=== PATIENT | female | born 1950 | race Two or more races ===

== ENCOUNTER 2019-04-21 08:54 | Inpatient (IN) | payer MEDICARE, OTHER ==
[~2019-04-21] VITALS: Ht 154.9 cm; Wt 73.3 kg
[2019-04-21 09:48] LABS: Basophils # (auto) 0.1 uL; Basophils % (auto) 0.9 % (0.0-2.0); Eosinophils # (auto) 0.1 uL; Eosinophils % (auto) 1.2 % (0.0-7.0); Lymphocytes # (auto) 0.9 uL
[2019-04-21 09:50] LABS: Hematocrit 32.1 % (36.0-46.0); Hemoglobin 10.2 g/dL (12.2-16.2); Lymphocytes % (auto) 7.4 % (10.0-50.0); Mean Corpuscular Hemoglobin 25.2 pg (28.0-32.0); Mean Corpuscular Hgb Conc. 31.9 g/dL (32.0-36.0); Mean Corpuscular Volume 79.1 fL (80.0-100.0); Monocytes # (auto) 1.1 uL; Monocytes % (auto) 8.9 % (0.0-12.0); Neutrophils # (auto) 9.9 uL; Neutrophils % (auto) 81.6 % (37.0-80.0); Platelet Count (auto) 425 10^3/uL (140-450); Red Blood Cells 4.06 10^6/uL (4.0-5.20); Red Cell Distribution Width 17.8 % (11.8-14.3); White Blood Cell 12.1 10^3/uL (4.4-10.8)
[2019-04-21] MEDS ORDERED: SODIUM CHLORIDE 0.9% 1,000 ML IV ONE ×2 (09:53)
[2019-04-21] MEDS ORDERED: ONDANSETRON HCL 4 MG/2 ML VIAL IV ONE (10:00)
[2019-04-21 10:05] LABS: Alanine Aminotransferase 38 U/L (13-56); Albumin 2.1 g/dL (3.4-5.0); Anion Gap 15 (5-15); Aspartate Aminotransferase 104 U/L (15-37); BUN/Creatinine Ratio 16.5; Blood Urea Nitrogen 13 mg/dL (7-18); Calcium 9.2 mg/dL (8.5-10.1); Carbon Dioxide 24 mmol/L (21-32); Chloride 95 mmol/L (98-107); GFR African American 93 mL/min; GFR Non-African American 76 mL/min; Glucose 158 mg/dL (74-106); Potassium 3.7 mmol/L (3.5-5.1); Sodium 134 mmol/L (136-145)
[2019-04-21 10:10] LABS: Lactic Acid w/Reflex 5.4 mmol/L (0.4-2.0)
[2019-04-21 10:12] LABS: Alkaline Phosphatase 426 U/L (45-117); Bilirubin, Total 1.4 mg/dL (0.2-1.0); Total Protein 7.6 g/dL (6.4-8.2)
[2019-04-21 12:57] LABS: Urine Bacteria MOD /hpf (None Seen); Urine Blood Negative /uL (Negative); Urine Mucus FEW (None Seen); Urine Specific Gravity 1.022 (1.001-1.035); Urine WBC 13 /hpf (0 - 5)
[2019-04-21] MEDS ORDERED: LEVOFLOXACIN 500MG 100 ML IV ONE (13:30)
[2019-04-21] MEDS ORDERED: VANCOMYCIN 1GM/250ML 250 ML IV ONE ×2 (13:30→14:15)
[2019-04-21] MEDS ORDERED: NITROGLYCERIN 0.4 MG SL TAB SL PRN (15:45)
[2019-04-21] MEDS ORDERED: ACETAMINOPHEN 500 MG TAB PO PRN (15:45)
[2019-04-21] MEDS ORDERED: TEMAZEPAM 15 MG CAP PO PRN (15:45)
[2019-04-21] MEDS ORDERED: MORPHINE SULF INJ 2 MG/ML SYRINGE 1ML IV PRN (15:45)
[2019-04-21] MEDS ORDERED: traMADol HCL 50 MG TAB PO PRN (15:45)
[2019-04-21] MEDS ORDERED: LACTULOSE 20Gm/30ML SOLN PO PRN (15:45)
[2019-04-21] MEDS ORDERED: DEXTROSE (50%) 50ML SYRG IV PRN (15:45)
[2019-04-21] MEDS ORDERED: ERTAPENEM SOD INJ 1 GM in SODIUM CHL 0.9% 50 ML IV ONE (15:45)
[2019-04-21] MEDS: SODIUM CHLORIDE 0.9% 1,000 ML IV SCH ×2 (16:40→21:59)
[2019-04-21] MEDS ORDERED: ENOXAPARIN SOD 60 MG/0.6 ML SYRINGE SC ONE (17:00)
[2019-04-21] MEDS: ACCU-CHEK COMFORT CURVE STRIP VI SCH ×2 (17:31→21:37)
[2019-04-21] MEDS: InsuLIN REG 1unit/0.01ml Soln (100units/ml) SC SCH ×2 (17:38→21:36)
--- NOTE | 2019-04-21 18:05 | NUR ---
Telemetry admit from ER DOYLE HIGHTOWER admitted to Telemetry unit after SBAR received. Patient oriented to Terrie Becker, primary RN, unit, room, bed, and unit policies regarding patient care and visiting hours. Patient now on continuous telemetry monitoring, tele box # 32 and telemetry reading on arrival to unit is SINUS TACH 101. Patient placed on bedside oxygen, weighed by bedscale and encouraged to call if they need something. All questions and concerns addressed, patient verbalized understanding.
[2019-04-21 18:15] VITALS: BP 119/55
[2019-04-21] MEDS ORDERED: predniSONE 20 MG TAB PO ONE (19:00)
--- NOTE | 2019-04-21 19:30 | NUR ---
Opening Shift Note Assumed care of patient, patient was asleep but arousable with to name. No S/S of distress/SOB or pain. Patient stated that she could not have male nurse. Will notify charge nurse for change in assignment.
--- NOTE | 2019-04-21 20:30 | NUR ---
CARE ENDORSED Care has been endorsed to Kelli HAYES.
--- NOTE | 2019-04-21 20:35 | NUR ---
Received patient from Shane She is resting in bed, no S/S of distress, SOB, or pain. She is A/O x4. Updated on plan of care, all questions and concerns answered. Call light is within reach, side rails up x2, bed is in lowest position, bedside commode at bedside. Will round and monitor patient hourly and as needed.
[2019-04-21] MEDS ORDERED: ONDA-143 PO (20:36)
[2019-04-21] MEDS ORDERED: DULO20CA36 PO (20:45)
[2019-04-21] MEDS ORDERED: TRAM50TA2 PO (20:45)
[2019-04-21] MEDS ORDERED: METF500S PO (20:45)
[2019-04-21] MEDS: SODIUM FERR GLUC 62.5MG/5ML 125 MG in SODIUM CHL 0.9% 100 ML IV SCH (21:27)
[2019-04-21 21:45] VITALS: BP 112/70
[2019-04-22] MEDS ORDERED: predniSONE 20 MG TAB PO ONE ×2 (01:00→07:00)
--- NOTE | 2019-04-22 04:36 | NUR ---
New orders received from MD Mack, patient is to go for a CT of the chest with contrast at 0800. Patient is aware. Will input orders and continue to monitor patient.
[2019-04-22 05:05] VITALS: BP 120/71
[2019-04-22 05:56] LABS: Basophils # (auto) 0 uL; Eosinophils # (auto) 0 uL; Hemoglobin 8.7 g/dL (12.2-16.2); Lymphocytes # (auto) 0.6 uL
[2019-04-22 05:58] LABS: Basophils % (auto) 0.1 % (0.0-2.0); Hematocrit 26.9 % (36.0-46.0); Lymphocytes % (auto) 6.4 % (10.0-50.0); Mean Corpuscular Hemoglobin 25.9 pg (28.0-32.0); Mean Corpuscular Hgb Conc. 32.4 g/dL (32.0-36.0); Mean Corpuscular Volume 79.9 fL (80.0-100.0); Monocytes # (auto) 0.1 uL; Monocytes % (auto) 1.6 % (0.0-12.0); Neutrophils # (auto) 8.2 uL; Neutrophils % (auto) 91.9 % (37.0-80.0); Platelet Count (auto) 295 10^3/uL (140-450); Red Blood Cells 3.37 10^6/uL (4.0-5.20); Red Cell Distribution Width 18.1 % (11.8-14.3); White Blood Cell 8.9 10^3/uL (4.4-10.8)
[2019-04-22 06:16] LABS: Albumin 1.7 g/dL (3.4-5.0); BUN/Creatinine Ratio 19.4; Calcium 8.3 mg/dL (8.5-10.1); Potassium 3.8 mmol/L (3.5-5.1)
[2019-04-22 06:19] LABS: Bilirubin, Total 1.1 mg/dL (0.2-1.0); Total Protein 6.3 g/dL (6.4-8.2)
[2019-04-22] MEDS: SODIUM CHLORIDE 0.9% 1,000 ML IV SCH ×3 (06:28→21:06)
[2019-04-22] MEDS: InsuLIN REG 1unit/0.01ml Soln (100units/ml) SC SCH ×4 (06:34→21:41)
[2019-04-22] MEDS: ACCU-CHEK COMFORT CURVE STRIP VI SCH ×4 (06:34→21:41)
--- NOTE | 2019-04-22 06:59 | NUR ---
Family called, password given, and updated on patient's status.
[2019-04-22] MEDS ORDERED: diphenhdrAMINE HCL 25 MG CAP PO ONE (07:00)
[2019-04-22] MEDS ORDERED: IOHEXOL 350 MG/ML 100ML IJ ONE (07:07)
--- NOTE | 2019-04-22 07:45 | NUR ---
IV removed by patient IV DC'd by patient after pulling it out. Catheter was fully intact. Cleaned site, pressure dressing applied. Patient tolerated well.
--- NOTE | 2019-04-22 07:50 | NUR ---
IV insertion to RAC IV access obtained, via clean sterile technique by inserting 20 gauge catheter at the RAC after 1 attempt(s). IV secured properly. No trauma to site. Patient tolerated well.
--- NOTE | 2019-04-22 08:10 | NUR ---
Patient was taken downstairs for the CT of the chest.
--- NOTE | 2019-04-22 10:30 | NUR ---
Dr. Leonard at bedside, new orders received to collect urine bacterial culture.
[2019-04-22] MEDS: PANTOPRAZOLE 40 MG TAB PO SCH (11:08)
[2019-04-22] MEDS: ENOXAPARIN SOD 40 MG/0.4 ML SYRINGE SC SCH (11:08)
[2019-04-22] MEDS: ERTAPENEM SOD INJ 1 GM in SODIUM CHL 0.9% 50 ML IV SCH (11:08)
[2019-04-22] MEDS: SODIUM FERR GLUC 62.5MG/5ML 125 MG in SODIUM CHL 0.9% 100 ML IV SCH (12:14)
--- NOTE | 2019-04-22 14:37 | NUR ---
Endorsed care to Glory HAYES.
--- NOTE | 2019-04-22 14:50 | NUR ---
RECEIVED PATIENT FROM DAY SHIFT RN. PATIENT RESTING IN BED. FAMILY AT BEDSIDE. NO S/S OF DISTRESS NOTED. DENIED PAIN FOR NOW. POC INSTRUCTED AND ENCOURAGED PATIENT TO CALL FOR RAZOR GRINDER IF NEEDED. BED IN LOWEST POSITION WITH SIDE RAILS UP X 2. CALL BRAND WITHIN REACH. ALARM ON. CONTINUE TO MONITOR FOR CHANGES Q1H AND PRN.
[2019-04-22 17:00] VITALS: BP 122/74
--- NOTE | 2019-04-22 17:35 | NUR ---
ACCU-CHECK, BS 233. INSULIN GIVEN ORDERED. CONTINUE TO MONITOR.
--- NOTE | 2019-04-22 21:42 | NUR ---
ASSISTED PATIENT TO BEDSIDE COMMODE. PATIENT TOLERATED WELL. NO S/S OF DISTRESS NOTED. ACCU-CHECK, BS 239. INSULIN GIVEN ORDERED. CONTINUE TO MONITOR.
[2019-04-22 21:49] VITALS: BP 119/72
--- NOTE | 2019-04-23 01:30 | NUR ---
PATIENT SLEEPING. NO S/S OF DISTRESS NOTED. CONTINUE TO MONITOR.
--- NOTE | 2019-04-23 04:08 | NUR ---
ASSISTED PATIENT TO BEDSIDE COMMODE. PATIENT TOLERATED WELL. CONTINUE TO MONITOR.
[2019-04-23 05:00] VITALS: BP 110/60
[2019-04-23] MEDS: SODIUM CHLORIDE 0.9% 1,000 ML IV SCH ×4 (06:20→23:22)
[2019-04-23] MEDS: InsuLIN REG 1unit/0.01ml Soln (100units/ml) SC SCH ×4 (06:20→22:00)
[2019-04-23] MEDS: ACCU-CHEK COMFORT CURVE STRIP VI SCH ×4 (06:21→22:05)
--- NOTE | 2019-04-23 06:21 | NUR ---
ACCU-CHECK, BS 100. NO COVERAGE. CONTINUE TO MONITOR.
--- NOTE | 2019-04-23 07:30 | NUR ---
Morning note patient resting in bed with even and unlabored respirations, no distress noted. Instructed patient on POC, fall precautions and to call for assistance. Patient verbalized understanding. Fall precautions in place with bed in lowest locked position with call light within reach. BSC at bedside. Will continue to monitor q1hr & PRN.
[2019-04-23 08:00] VITALS: BP 103/58
[2019-04-23] MEDS: ERTAPENEM SOD INJ 1 GM in SODIUM CHL 0.9% 50 ML IV SCH (10:37)
[2019-04-23] MEDS: ENOXAPARIN SOD 40 MG/0.4 ML SYRINGE SC SCH (10:38)
[2019-04-23] MEDS: PANTOPRAZOLE 40 MG TAB PO SCH (10:38)
--- NOTE | 2019-04-23 11:01 | NUR ---
was at bedside - Dr. Nina Leonard This RN was at bedside. POC discussed with the patient and patient's son at bedside.
[2019-04-23 12:00] VITALS: BP 109/83
--- NOTE | 2019-04-23 12:30 | NUR ---
Medication not available - called pharmacy Scheduled IV medication not available. Notified pharmacy. Medication to be delivered to unit.
[2019-04-23] MEDS: SODIUM FERR GLUC 62.5MG/5ML 125 MG in SODIUM CHL 0.9% 100 ML IV SCH (12:39)
[2019-04-23] MEDS: PROMETHAZINE HCL 25 MG/ML 1ML IV PRN (13:45)
--- NOTE | 2019-04-23 13:52 | NUR ---
Patient resting in bed with even and unlabored respirations, no distress noted. Call light within reach. Visitors at bedside.
--- NOTE | 2019-04-23 16:35 | NUR ---
IV removed/IV started IV removed from the RAC due to leaking. IV removed with clean technique, catheter intact. Dressing applied. Patient tolerated well, no trauma to site. 22G IV started to the RWR with clean technique by ABIGAIL Benavides. IV secured. IV education provided to patient. patient verbalized understanding. Bed in lowest locked position with call light within reach. Visitor at bedside.
[2019-04-23 17:02] VITALS: BP 130/73
--- NOTE | 2019-04-23 18:38 | NUR ---
Closing note patient resting in bed with even and unlabored respirations, no distress noted. Fall precautions in place with bed in lowest locked position with call light within reach.
--- NOTE | 2019-04-23 19:12 | NUR ---
Care endorsed to ABIGAIL Holder.
--- NOTE | 2019-04-23 19:20 | NUR ---
RECEIVED PATIENT FROM DAY SHIFT RN. PATIENT RESTING IN BED. NO S/S OF DISTRESS NOTED. DENIED PAIN AND NAUSEA FOR NOW. POC INSTRUCTED AND ENCOURAGED PATIENT TO CALL FOR MANUFACTURERS AGENT IF NEEDED. BED IN LOWEST POSITION WITH SIDE RAILS UP X 2. CALL BRAND WITHIN REACH. ALARM ON. CONTINUE TO MONITOR FOR CHANGES Q1H AND PRN.
[2019-04-23 21:47] VITALS: BP 105/65
--- NOTE | 2019-04-23 22:05 | NUR ---
ACCU-CHECK, BS 112. NO COVERAGE. CONTINUE TO MONITOR.
--- NOTE | 2019-04-23 22:30 | NUR ---
ASSISTED PATIENT TO BEDSIDE COMMODE. PATIENT TOLERATED WELL. CONTINUE TO MONITOR.
--- NOTE | 2019-04-23 23:11 | NUR ---
PATIENT'S FAMILY CALLED. PASSWORD CONFIRMED. UPDATED ON PATIENT'S CONDITION. ALL QUESTIONED ADDRESSED. CONTINUE TO MONITOR.
--- NOTE | 2019-04-24 03:07 | NUR ---
PATIENT SLEEPING. NO S/S OF DISTRESS NOTED. CONTINUE TO MONITOR.
[2019-04-24 04:46] VITALS: BP 118/58
[2019-04-24] MEDS: ACCU-CHEK COMFORT CURVE STRIP VI SCH ×4 (06:26→21:34)
[2019-04-24] MEDS: InsuLIN REG 1unit/0.01ml Soln (100units/ml) SC SCH ×4 (06:27→21:34)
--- NOTE | 2019-04-24 06:27 | NUR ---
ASSISTED PATIENT TO BEDSIDE COMMODE. PATIENT TOLERATED WELL. ACCU-CHECK, BS 150. INSULIN GIVEN ORDERED. CONTINUE TO MONITOR.
--- NOTE | 2019-04-24 07:10 | NUR ---
OPENING SHIFT NOTE Assumed care of patient, awake and alert. No S/S of distress/SOB or pain. Instructed on POC and to call for assist PRN, will continue to monitor for changes Q1hr and PRN.
[2019-04-24 08:00] VITALS: BP 113/60
--- NOTE | 2019-04-24 09:37 | NUR ---
MICROBIOLOGY NOTIFICATION PATIENT POSITIVE FOR E.COLI/ESBL IN URINE. NANDA NOTIFIED. WILL ISOLATE PATIENT AND PLACE ON CONTACT PRECAUTIONS.
[2019-04-24] MEDS: ERTAPENEM SOD INJ 1 GM in SODIUM CHL 0.9% 50 ML IV SCH (10:45)
[2019-04-24] MEDS: PANTOPRAZOLE 40 MG TAB PO SCH (10:45)
[2019-04-24] MEDS: ENOXAPARIN SOD 40 MG/0.4 ML SYRINGE SC SCH (10:46)
[2019-04-24 12:00] VITALS: BP 124/64
[2019-04-24] MEDS: SODIUM FERR GLUC 62.5MG/5ML 125 MG in SODIUM CHL 0.9% 100 ML IV SCH (13:20)
[2019-04-24] MEDS: SODIUM CHLORIDE 0.9% 1,000 ML IV SCH ×3 (13:20→20:10)
--- NOTE | 2019-04-24 14:44 | NUR ---
Midline Placement Patient educated on need for midline placement. All risks and benefits explained and all questions and concerns addresses prior to procedure. 18g/10cm midline inserted via right brahchial vein using Ultrasound. Sterile technique utilized. Blood return obtained from single lumen and flushed easily with NS using proper technique. Midline secured with saline lock; biodisc and occlusive dressing applied. Primary RN notified. Midline lot #[id number].
[2019-04-24 17:00] VITALS: BP 119/62
--- NOTE | 2019-04-24 18:07 | NUR ---
RADIOLOGY CAME TO GET PATIENT FOR CT SCAN. THE PATIENT IS REFUSING THE SCAN BE DONE TONIGHT. THE SCAN WILL BE MOVED TO TOMORROW.
[2019-04-24] MEDS: PROMETHAZINE HCL 25 MG/ML 1ML IV PRN (18:32)
--- NOTE | 2019-04-24 19:00 | NUR ---
Opening Shift Note Assumed care of patient, awake and alert. No S/S of distress/SOB or pain. Instructed on POC and to call for assist PRN, will continue to monitor for changes Q1hr and PRN.
[2019-04-24 22:00] VITALS: BP 128/60
[2019-04-25] MEDS: SODIUM CHLORIDE 0.9% 1,000 ML IV SCH ×4 (02:51→22:20)
[2019-04-25 05:00] VITALS: BP 99/60
[2019-04-25] MEDS: ACCU-CHEK COMFORT CURVE STRIP VI SCH ×4 (06:30→21:37)
[2019-04-25] MEDS: InsuLIN REG 1unit/0.01ml Soln (100units/ml) SC SCH ×4 (06:31→21:37)
[2019-04-25 08:00] VITALS: BP 119/70
--- NOTE | 2019-04-25 08:00 | NUR ---
AWAKE ALERT ORIENTED TIMES 3 SON AT BEDSIDE. MODERATE TO MAX ASSIST TO BEDSIDE COMMODE. DIARRHEA STOOL SENT TO LAB FOR C DIFF WBC CULTURE AND OCCULT BLOOD. PATIENT EXTREMELY WEAK. ONLY ATE 2 BITES OFF BREAKFAST.
--- NOTE | 2019-04-25 09:30 | NUR ---
DAUGHTER AT BEDSIDE. PATIENT ASKED FOR JELLO. PATIENT ATE ALL OF JELLO. NO COMPLAINTS OF PAIN JUST STATES SHE FEELS SO WEAK AND EXHAUSTED.
[2019-04-25] MEDS: ERTAPENEM SOD INJ 1 GM in SODIUM CHL 0.9% 50 ML IV SCH (10:36)
[2019-04-25] MEDS: ENOXAPARIN SOD 40 MG/0.4 ML SYRINGE SC SCH (10:36)
[2019-04-25] MEDS: PANTOPRAZOLE 40 MG TAB PO SCH (10:36)
--- NOTE | 2019-04-25 10:48 | NUR ---
DR BERNAL AT BEDSIDE FOR RECONSULT.
--- NOTE | 2019-04-25 11:56 | NUR ---
Nutrition Assessment Notes please see attached link for complete assessment Est. Needs BW (68 kg): 5283-9355 kcal (23-25 kcal/kgBW), 68-81 gms pro (1.0-1.2 gms/kgBW r/t severe hypoalb). Will continue to monitor pertinent labs and reassess nutrient need prn Addendum: 04/25/19 at [address] Amended: Links added.
[2019-04-25 12:00] VITALS: BP 121/74
--- NOTE | 2019-04-25 12:50 | NUR ---
DR Heather JIMÉNEZ AT BEDSIDE. DISCUSSED PLAN OF CARE WITH FAMILY.
--- NOTE | 2019-04-25 13:14 | NUR ---
PATIENT OUT OF BED WORKING WITH PHYSICAL THERAPY. FAMILY AT BEDSIDE.
[2019-04-25] MEDS: SODIUM FERR GLUC 62.5MG/5ML 125 MG in SODIUM CHL 0.9% 100 ML IV SCH (13:29)
[2019-04-25 17:00] VITALS: BP 117/68
[2019-04-25 22:00] VITALS: BP 110/63
[2019-04-26 05:00] VITALS: BP 108/62
[2019-04-26] MEDS: SODIUM CHLORIDE 0.9% 1,000 ML IV SCH ×3 (05:20→23:35)
[2019-04-26] MEDS: ACCU-CHEK COMFORT CURVE STRIP VI SCH ×4 (06:33→22:10)
[2019-04-26] MEDS: InsuLIN REG 1unit/0.01ml Soln (100units/ml) SC SCH ×4 (06:33→22:10)
--- NOTE | 2019-04-26 07:50 | NUR ---
Opening Shift Note Received call from patients daughter stating patient placed phone call to son and appeared to be confused. Patient awake and alert, patient states she had a dream and became confused. Patient reoriented to unit, patient now alert x4. No S/S of distress/SOB or pain. Instructed on POC and to call for assist PRN, will continue to monitor for changes Q1hr and PRN.
--- NOTE | 2019-04-26 08:00 | NUR ---
Patients daughter Sofia at bedside. FOREST FIRE MANAGEMENT OFFICER in room assessing vital signs. Blood sugar checked and WNL. Patients daughter assisting patient to breakfast tray.
--- NOTE | 2019-04-26 08:58 | NUR ---
ROUNDING Dr Leonard rounding with primary RN and family at bedside. Discusses plan of care and orders, patient and family verbalized understanding. Patient alert x4 and able to answer MD questions. New orders received and will carry out.
[2019-04-26 09:00] VITALS: BP 119/58
--- NOTE | 2019-04-26 09:00 | NUR ---
OFF UNIT Patient leaving unit via bed for ordered CT. No distress noted at time of departure. Will monitor for patient's return.
--- NOTE | 2019-04-26 09:30 | NUR ---
Return to unit Patient returned to unit, family at bedside.
--- NOTE | 2019-04-26 10:10 | NUR ---
HYGIENE Oral hygiene, bed bath and partial linen change complete with two staff members.
[2019-04-26 10:15] LABS: Eosinophils # (auto) 0.1 uL; Eosinophils % (auto) 0.7 % (0.0-7.0); Hematocrit 28.5 % (36.0-46.0); Monocytes # (auto) 1.4 uL; Red Blood Cells 3.51 10^6/uL (4.0-5.20)
[2019-04-26 10:16] LABS: Basophils # (auto) 0.2 uL; Basophils % (auto) 1.2 % (0.0-2.0); Hemoglobin 9.1 g/dL (12.2-16.2); Lymphocytes % (auto) 6.2 % (10.0-50.0); Mean Corpuscular Hemoglobin 25.9 pg (28.0-32.0); Mean Corpuscular Hgb Conc. 31.9 g/dL (32.0-36.0); Mean Corpuscular Volume 81.4 fL (80.0-100.0); Monocytes % (auto) 8.9 % (0.0-12.0); Neutrophils # (auto) 12.9 uL; Platelet Count (auto) 252 10^3/uL (140-450); Red Cell Distribution Width 19.9 % (11.8-14.3); White Blood Cell 15.5 10^3/uL (4.4-10.8)
[2019-04-26] MEDS: ERTAPENEM SOD INJ 1 GM in SODIUM CHL 0.9% 50 ML IV SCH (10:18)
[2019-04-26] MEDS: PANTOPRAZOLE 40 MG TAB PO SCH (10:18)
[2019-04-26] MEDS: ENOXAPARIN SOD 40 MG/0.4 ML SYRINGE SC SCH (10:19)
[2019-04-26 10:34] LABS: Albumin 1.3 g/dL (3.4-5.0); BUN/Creatinine Ratio 16.7; Calcium 8.6 mg/dL (8.5-10.1)
[2019-04-26 10:37] LABS: Bilirubin, Total 2.1 mg/dL (0.2-1.0); Total Protein 5.7 g/dL (6.4-8.2)
[2019-04-26 10:46] LABS: Potassium 2.4 mmol/L (3.5-5.1)
[2019-04-26] MEDS: ONDANSETRON HCL 4 MG/2 ML VIAL IV PRN ×2 (10:46→17:25)
--- NOTE | 2019-04-26 10:50 | NUR ---
Rounding Dr Leonard rounding for second time with primary RN. Patients Son and Daughter at bedside. Dr Leonard explained CT and lab results including plan of care. Discussed potassium results. Orders entered by Doctor.
[2019-04-26] MEDS ORDERED: VANCOMYCIN 1GM/250ML 250 ML IV ONE (11:00)
[2019-04-26] MEDS ORDERED: POTASSIUM EFFERVESENT TAB 25 MEQ PO ONE (11:00)
[2019-04-26] MEDS ORDERED: VANCOMYCIN PER PHARMACY 0 MG IV SCH (11:00)
--- NOTE | 2019-04-26 11:22 | NUR ---
Per SS consult for SNF placement pt will be needing Invanz 1GM IV daily for 2 weeks. Per SS Verrene Pt son requested [facility]. Contacted [facility] Ph: ) fax: ) faxed medical records. Per Josephine from [facility] Pt has been accepted to room [address] Andrew. I will set up transportation upon d/c . Addendum: 04/26/19 at 1130 by DEE GARZA Amended: Links added.
--- NOTE | 2019-04-26 11:50 | NUR ---
HARNESS AND BAG INSPECTOR Wilda rivas at bedside speaking with patients son and daughter.
--- NOTE | 2019-04-26 11:55 | NUR ---
BLADDER SCAN Bladder scan performed r/t patient stating she feels need to void but unable. Bladder scan shows > 546 ml urine in bladder. Bladder feels distended at this time and painful to touch. Will call Doctor Leonard with results.
[2019-04-26] MEDS: VANCOMYCIN 1,250 MG in D5W 5% 250 ML IV SCH (12:00)
--- NOTE | 2019-04-26 12:11 | NUR ---
AVERY Lyn at bedside to sign power of assistant county attorney paper work with patient son and daughter.
--- NOTE | 2019-04-26 12:24 | NUR ---
TELEPHONE ORDERS T/O read back and noted. Patient to be placed on strict intake and output, chaudhary catheter to be placed if patient cannot void in BSC. Patient requests to use BSC first before Chaudhary placed. PT paged to assist with helping patient get commode.
--- NOTE | 2019-04-26 12:57 | NUR ---
VOIDED Patient assisted to bedside commode. Patient voided dark alejandro urine measuring 350ml. Bladder still feels distended. Education provided on orders for chaudhary catheter. Patient refusing at this time r/t notary still needing to complete paperwork with family.
[2019-04-26 13:00] VITALS: BP 113/66
[2019-04-26] MEDS: POTASSIUM CHL 20MEQ/100ML 100 ML IV SCH ×3 (13:00→17:25)
[2019-04-26] MEDS ORDERED: SODIUM FERR GLUC 62.5MG/5ML 125 MG in SODIUM CHL 0.9% 100 ML IV SCH (14:00)
--- NOTE | 2019-04-26 15:53 | NUR ---
assessment Patient is a 68 year old female who is alert and oriented. Per patients son and daughter Flaquito and Sofia patient has a fww, cane, and wheelchair for home use. Patients PCP is Dr Blandon. I informed patient and family that she has a ss consult for SNF for IV ABX. Patient and family are requesting [facility]. Irene SW 1 will satisfy MD order. Addendum: 04/26/19 at 1555 by Wilda WICK Amended: Links added.
--- NOTE | 2019-04-26 16:02 | NUR ---
Chaudhary catheter insertion Patient still has not voided since last time assisted to BSC. Patient assessed and determined to be in need of chaudhary catheter. Order obtained from MD. Patient educated on catheter and reason for insertion. All questions answered. Chaudhary catheter 16 guage Polish inserted with clean sterile technique. Patient tolerated well.
[2019-04-26 16:54] VITALS: BP 109/54
--- NOTE | 2019-04-26 19:32 | NUR ---
Opening Shift Note Assumed care of patient, awake and alert. Oriented X4. No S/S of distress/SOB or pain. Instructed on POC and to call for assist PRN, will continue to monitor for changes Q1hr and PRN. Call light within reach.
[2019-04-26] MEDS ORDERED: POTASSIUM CHL 20MEQ/100ML 100 ML IV SCH (21:00)
[2019-04-26 22:00] VITALS: BP 106/58
--- NOTE | 2019-04-26 22:00 | NUR ---
PATIENT BS 156. PER REPORT ADVISED TO BE CAUTIOUS WITH INSULIN ADMINISTRATION DUE TO OVER NIGHT BLOOD SUGAR DROP. AFTER READING RESULT TO PATIENT, PATIENT VERBALIZES "BETTER NOT TAKE IT BECAUSE IT WILL BE LOW", INSULIN NOT GIVEN AT THIS TIME. WILL REASSESS BS PER ORDER. PATIENTS SHANTELLE LIGHT WITHIN REACH.
[2019-04-27 05:00] VITALS: BP 101/60
--- NOTE | 2019-04-27 05:11 | NUR ---
ROUNDS PATIENT RESTING IN BED COMFORTABLY, WITH EVEN AND UNLABORED RESPIRATIONS OF 16BPM AND SATURATING AT 97% ON ROOM AIR. NO S/S OF PAIN OR DISTRESS AT THIS MOMENT. BED AT ITS LOWEST POSITION AND CALL LIGHT WITHIN REACH.
[2019-04-27] MEDS: ACCU-CHEK COMFORT CURVE STRIP VI SCH ×4 (06:35→22:00)
[2019-04-27] MEDS: InsuLIN REG 1unit/0.01ml Soln (100units/ml) SC SCH ×4 (06:35→22:00)
[2019-04-27 07:45] LABS: Hemoglobin 8.9 g/dL (12.2-16.2); Lymphocytes # (auto) 1.3 uL; Monocytes # (auto) 1.3 uL
[2019-04-27 07:49] LABS: Basophils # (auto) 0.2 uL; Basophils % (auto) 1.6 % (0.0-2.0); Eosinophils # (auto) 0.1 uL; Hematocrit 28.1 % (36.0-46.0); Mean Corpuscular Hemoglobin 25.8 pg (28.0-32.0); Mean Corpuscular Hgb Conc. 31.7 g/dL (32.0-36.0); Mean Corpuscular Volume 81.3 fL (80.0-100.0); Monocytes % (auto) 10.2 % (0.0-12.0); Neutrophils # (auto) 9.9 uL; Neutrophils % (auto) 77.2 % (37.0-80.0); Platelet Count (auto) 242 10^3/uL (140-450); Red Blood Cells 3.46 10^6/uL (4.0-5.20); White Blood Cell 12.8 10^3/uL (4.4-10.8)
[2019-04-27 07:55] LABS: Red Cell Distribution Width 20.1 % (11.8-14.3)
[2019-04-27 08:03] LABS: Albumin 1.3 g/dL (3.4-5.0); BUN/Creatinine Ratio 17.9; Calcium 8.4 mg/dL (8.5-10.1); Potassium 3.3 mmol/L (3.5-5.1)
--- NOTE | 2019-04-27 08:05 | NUR ---
ROUNDMARCELLA Received care of patient with senior principal Ermelinda. Dr Nina Leonard rounding on patient with RN and patient's son Flaquito at bedside. Plan of care discussed including concern for urine output and pain management. Verbal order received to D/C tramadol and give IV Morphine for pain. Verbal order also given to admin 1 liter IV bolus over 2 hours and change NS to 150ml/hr [facility] Nephrology will be consulted.
[2019-04-27 08:06] LABS: Bilirubin, Total 2.3 mg/dL (0.2-1.0); Total Protein 5.5 g/dL (6.4-8.2)
--- NOTE | 2019-04-27 08:10 | NUR ---
REPOSITIONED Patient repositioned with 3 staff members for comfort. TELEPHONE DIRECTORY DELIVERER obtaining vital signs. Patients son at bedside assisting patient to breakfast tray.
[2019-04-27] MEDS: MORPHINE SULFATE 4 MG/ML SYR/VIAL IV PRN (08:27)
--- NOTE | 2019-04-27 08:30 | NUR ---
Nephro Consult Dr Blackburn at nursing station for Nephro Consult. Plan of care discussed with primary RN. Doctor recommends holding change in fluids and IV bolus at this time. Doctor will enter all other orders and follow up with patient.
[2019-04-27 09:00] VITALS: BP 120/67
[2019-04-27] MEDS ORDERED: FUROSEMIDE 20 MG TAB PO ONE (09:15)
--- NOTE | 2019-04-27 09:30 | NUR ---
NON ADMIN Per NOC shift RN patient received final dose of k-rider on NOC shift.
[2019-04-27] MEDS: PANTOPRAZOLE 40 MG TAB PO SCH (10:38)
[2019-04-27] MEDS: ERTAPENEM SOD INJ 1 GM in SODIUM CHL 0.9% 50 ML IV SCH (10:39)
[2019-04-27] MEDS: ENOXAPARIN SOD 40 MG/0.4 ML SYRINGE SC SCH (10:39)
--- NOTE | 2019-04-27 11:41 | NUR ---
URINE SENT TO LAB ORDERED
[2019-04-27] MEDS: ALBUMIN 25% 100 ML IV SCH ×2 (11:43→20:45)
[2019-04-27 12:01] LABS: Protein, Urine 89.9 mg/dL (0.0-11.9)
[2019-04-27] MEDS: VANCOMYCIN 1,250 MG in D5W 5% 250 ML IV SCH (12:43)
--- NOTE | 2019-04-27 12:43 | NUR ---
ALBUMIN COMPLETE Patient tolerated well, vital signs stable. Lasix will be admin as ordered. Patient's son remains bedside.
[2019-04-27] MEDS: SODIUM CHLORIDE 0.9% 1,000 ML IV SCH (12:55)
[2019-04-27 12:59] VITALS: BP 108/64
[2019-04-27] MEDS ORDERED: FUROSEMIDE 40 MG/4 ML VIAL IV ONE (13:00)
--- NOTE | 2019-04-27 14:03 | NUR ---
Voiding Patient now voiding clear yellow urine post Lasix administration, output >600ml at this time. Vitals stable, will continue to monitor.
--- NOTE | 2019-04-27 14:50 | NUR ---
PHARMACY CALLED Phone call placed to pharmacy to allow RN to pull IV potassium. Will admin once med is available.
[2019-04-27] MEDS: POTASSIUM CHL 20MEQ/100ML 100 ML IV SCH ×4 (15:00→17:49)
[2019-04-27 17:00] VITALS: BP 113/69
--- NOTE | 2019-04-27 17:20 | NUR ---
INSULIN Patient and patient's daughter request to hold admin on insulin until patient eats.
--- NOTE | 2019-04-27 18:30 | NUR ---
Patient sitting up in bed eating dinner with assistance of Daughter. Insulin administered as ordered.
--- NOTE | 2019-04-27 19:00 | NUR ---
Care endorsed Report given to NOC RN. IV potassium still infusing at this time. Albumin ordered to be given Q8H, next dose should be administered at 19:43. Albumin endorsed to NOC RN.
--- NOTE | 2019-04-27 20:00 | NUR ---
OPENING NOTE RECEIVED REPORT FROM DARELL RN. ASSUMING ROLE OF CARE OF PATIENT AT THIS TIME. PATIENT SHOWING NO SIGN OF DISTRESS, SHORTNESS OF BREATH, AND PATIENT DENIES ANY PAIN AT THIS TIME. PATIENT APPEARS FATIGUED AND IS SLOW TO RESPOND. PATIENT EDUCATED ON PLAN OF CARE FOR THE NIGHT AND PATIENT VERBALIZED UNDERSTANDING. PATIENT CURRENTLY DRAINING THROUGH ZACARIAS CLEAR YELLOW URINE. BED LOWERED, CALL LIGHT WITHIN REACH, AND PATIENT WILL BE ROUNDED ON EVERY HOUR AND NEEDED.
[2019-04-27 22:00] VITALS: BP 103/62
[2019-04-28] MEDS: SODIUM CHLORIDE 0.9% 1,000 ML IV SCH (02:15)
[2019-04-28] MEDS: ALBUMIN 25% 100 ML IV SCH (04:45)
[2019-04-28 05:00] VITALS: BP 116/53
[2019-04-28] MEDS: ACCU-CHEK COMFORT CURVE STRIP VI SCH ×4 (06:41→23:12)
[2019-04-28] MEDS: InsuLIN REG 1unit/0.01ml Soln (100units/ml) SC SCH (06:42)
[2019-04-28 07:50] LABS: Basophils # (auto) 0.1 uL
[2019-04-28 07:51] LABS: Basophils % (auto) 0.8 % (0.0-2.0); Eosinophils # (auto) 0.2 uL; Eosinophils % (auto) 1.4 % (0.0-7.0); Hematocrit 24.9 % (36.0-46.0); Lymphocytes # (auto) 1.3 uL; Lymphocytes % (auto) 11.8 % (10.0-50.0); Mean Corpuscular Hemoglobin 26.1 pg (28.0-32.0); Mean Corpuscular Hgb Conc. 32.1 g/dL (32.0-36.0); Mean Corpuscular Volume 81.5 fL (80.0-100.0); Monocytes # (auto) 1.4 uL; Monocytes % (auto) 12.5 % (0.0-12.0); Neutrophils # (auto) 8.1 uL; Neutrophils % (auto) 73.5 % (37.0-80.0); Platelet Count (auto) 174 10^3/uL (140-450); Red Blood Cells 3.05 10^6/uL (4.0-5.20)
[2019-04-28 07:53] LABS: Red Cell Distribution Width 20.4 % (11.8-14.3)
[2019-04-28 08:00] VITALS: BP 125/76
[2019-04-28 08:09] LABS: % Iron Saturation 39.7 % (15-50); Albumin 2.3 g/dL (3.4-5.0); Calcium 8.4 mg/dL (8.5-10.1); Potassium 3.2 mmol/L (3.5-5.1)
[2019-04-28 08:17] LABS: BUN/Creatinine Ratio 13.8; Bilirubin, Total 3.6 mg/dL (0.2-1.0); Total Protein 5.7 g/dL (6.4-8.2)
[2019-04-28 08:35] LABS: Ferritin > 1650.0 ng/mL (10-322)
[2019-04-28] MEDS: PANTOPRAZOLE 40 MG TAB PO SCH (10:14)
[2019-04-28] MEDS: ENOXAPARIN SOD 40 MG/0.4 ML SYRINGE SC SCH (10:14)
[2019-04-28] MEDS: ERTAPENEM SOD INJ 1 GM in SODIUM CHL 0.9% 50 ML IV SCH (10:14)
--- NOTE | 2019-04-28 10:40 | NUR ---
PT SEEN BY DR. JIMÉNEZ ORDERS RECEIVED, READ BACK AND CARRIED OUT.
[2019-04-28] MEDS ORDERED: POTASSIUM CHLORIDE 40 MEQ, LIDOCAINE 1% (LOCAL ANESTH.) 4 ML in SODIUM CHL 0.9% 100 ML IV ONE (11:45)
--- NOTE | 2019-04-28 11:45 | NUR ---
Nutrition consult/Follow-up Notes Wt. 72.4 kg Pt. endorses fair to poor appetite with abdominal pain. No reports of N/V/D/C at this time. PO 25-75% x 3 days. Daughter at bedside reports that pt. has had fair appetite for about x 3 weeks prior to admission and is requesting for ONS for pt. Est. Needs (based on previous assessment) Calories/Kcals/Kg 23-25 Kcals Calculated 1700 Proteing/K.0-1.2 (severe hypoalb) Protein Calculated 68 Labs: WBC 11H, H/H 8L/24.9L, ALB 3.3L Skin: Austen 15 GI: BM x 2 (04/28) PES: Altered nutrition related lab values r/t current chronic medical condition AEB hyperglycemia, elev a1c, severe hypoalb, hyperbili (ongoing) Plan of care: Monitor PO intake/tolerance, labs, skin integrity. F/U 3-5 days. Recommendations: 1) Glucerna TID for fair PO intake 2) Continue CCHO diet as ordered and as tolerated.
[2019-04-28] MEDS: VANCOMYCIN 1,250 MG in D5W 5% 250 ML IV SCH (12:20)
--- NOTE | 2019-04-28 12:56 | NUR ---
SPOKE WITH DR. MCDUFFIE REGARDING PROCRIT MEDICATION, PER DR. MCDUFFIE PT CAN HAVE PROCRIT 20,000 UNIT IF APPROVED FOR THE PT. CALLED PHARMACY BUT MEDICATION IS NOT AVAILABLE, PER DR. MCDUFFIE IF MEDICATION IS NOT APPROVED PT WILL GET IT AN OUT PT IN THE OFFICE. DR. JIMÉNEZ MADE AWARE.
[2019-04-28 13:00] VITALS: BP 113/67
--- NOTE | 2019-04-28 15:30 | NUR ---
PT AND FAMILY EDUCATED ON THE IMPORTANCE OF TURNING EVERY 2 HOURS TO PREVENT PRESSURE ULCER, PT HAS BEEN REFUSING TO TURN, DAUGHTER BINA AND SON CHARLES WAS TRYING TO CONVINCE THE PT TO TURN, PT IS STILL REFUSING BUT SON CHARLES HELP US TO TURN THE PT AND CHECKED HER SACRUM, NOTED BLANCHABLE REDNESS, PT TURNED AND MADE AWARE OF THE RISK.
[2019-04-28] MEDS: MORPHINE SULFATE 4 MG/ML SYR/VIAL IV PRN (16:13)
--- NOTE | 2019-04-28 16:15 | NUR ---
WOUND CARE NURSE CAROLYN MADE AWARE PT HAS BEEN REFUSING TO TURN AND NOTED BLANCHABLE REDNESS ON HER SACRUM, ASKED HER IF POSSIBLE TO ORDER AIR MATTRESS BED, CAROLYN SAID TO GET AN ORDER TO DR. JIMÉNEZ.
--- NOTE | 2019-04-28 16:23 | NUR ---
MEDICATION DAUGHTER BINA STATED THAT MORPHINE 2MG IS TOO MUCH FOR THE PT, SHE REQUESTED TO CHANGE IT TO 1MG, DR. JIMÉNEZ MADE AWARE AND HE ORDERED TO DECREASE IT TO 1MG.
--- NOTE | 2019-04-28 16:25 | NUR ---
DR. JIMÉNEZ MADE AWARE PT IS REFUSING TO TURN AND NOTED BLANCHABLE REDNESS ON SACRUM, HE SAID TO ORDER AIR MATTRESS FOR PT, WOUND CARE NURSE MADE AWARE PT HAS LOW HUGO SCORE.
[2019-04-28 17:00] VITALS: BP 113/66
--- NOTE | 2019-04-28 18:00 | NUR ---
TURNING SPOKE WITH SON CHARLES, HE STATED TO TURN THE PT ONLY IF PT AGREES, CHARLES MADE AWARE PT IS RISK FOR DEVELOPING PRESSURE ULCER IF SHE WILL NOT TURN, CHARLES VERBALIZED UNDERSTANDING.
--- NOTE | 2019-04-28 20:00 | NUR ---
pt refusing to turn. explained to pt the needd for turning to avoid skin break down. pt still refused. pt verbalized understanding.
[2019-04-28 22:00] VITALS: BP 112/63
[2019-04-29 05:00] VITALS: BP 111/54
--- NOTE | 2019-04-29 05:40 | NUR ---
Family updated on pt status Family of KATJADOYLE updated on patient's status and condition. All questions and concerns addressed. pt refusing to turn. explained to daughter the need for turning to avoid skin break down. daughter stated she will try to encourage her mom to turn. and she verbalized understanding.
[2019-04-29] MEDS: ACCU-CHEK COMFORT CURVE STRIP VI SCH ×4 (05:56→23:56)
--- NOTE | 2019-04-29 05:56 | NUR ---
pt refusing to turn. explained to pt the needd for turning to avoid skin break down. pt still refused. pt verbalized understanding.
--- NOTE | 2019-04-29 07:40 | NUR ---
AIR MATTRESS: ordered with reference# [id number] ETA [id number]. Call [place] Rom at if needed to follow up or for any changes Addendum: 04/29/19 at 0743 by Jaida Boyer RN Amended: Links added.
[2019-04-29] MEDS: ERTAPENEM SOD INJ 1 GM in SODIUM CHL 0.9% 50 ML IV SCH (09:21)
[2019-04-29] MEDS: PANTOPRAZOLE 40 MG TAB PO SCH (09:22)
[2019-04-29] MEDS: ENOXAPARIN SOD 40 MG/0.4 ML SYRINGE SC SCH (09:22)
[2019-04-29 09:37] VITALS: BP 100/65
[2019-04-29 10:16] LABS: Eosinophils # (auto) 0.1 uL; Mean Corpuscular Hemoglobin 26.3 pg (28.0-32.0); Monocytes # (auto) 1.2 uL; Monocytes % (auto) 10.6 % (0.0-12.0); Nucleated Red Blood Cells % 0.1 %
[2019-04-29 10:20] LABS: Basophils # (auto) 0.1 uL; Basophils % (auto) 0.8 % (0.0-2.0); Eosinophils % (auto) 0.7 % (0.0-7.0); Hematocrit 24.9 % (36.0-46.0); Lymphocytes # (auto) 1.4 uL; Lymphocytes % (auto) 12.4 % (10.0-50.0); Mean Corpuscular Hgb Conc. 32.2 g/dL (32.0-36.0); Mean Corpuscular Volume 81.8 fL (80.0-100.0); Neutrophils # (auto) 8.3 uL; Neutrophils % (auto) 75.5 % (37.0-80.0); Platelet Count (auto) 150 10^3/uL (140-450); Red Blood Cells 3.04 10^6/uL (4.0-5.20)
[2019-04-29 10:34] LABS: Albumin 1.2 g/dL (3.4-5.0); Calcium 6.9 mg/dL (8.5-10.1)
[2019-04-29 10:38] LABS: BUN/Creatinine Ratio 17.8; Bilirubin, Total 3.2 mg/dL (0.2-1.0); Total Protein 4.7 g/dL (6.4-8.2)
[2019-04-29 10:44] LABS: Potassium 2.9 mmol/L (3.5-5.1)
--- NOTE | 2019-04-29 11:08 | NUR ---
critical K 2.9, Dr. Leonard made aware, ordered K desiree 60meq.
[2019-04-29] MEDS: POTASSIUM CHL 20MEQ/100ML 100 ML IV SCH ×3 (11:23→23:56)
[2019-04-29] MEDS: MORPHINE SULF INJ 2 MG/ML SYRINGE 1ML IV PRN (11:23)
--- NOTE | 2019-04-29 11:34 | NUR ---
WOUND CARE NOTE: Wound care in to see patient per wound care request due low Austen score of 12. Patient is 68 years old female with admitting diagnosis of UTI with possible Sepsis. She has history of colon CA with liver metastasis, s/p left mastectomy, on chemotherapy. Patient is resting in bed in Rm. 298B. She's awake and able to verbalize needs. Patient is premedicated for pain by her bedside nurse prior skin assessment. Patient needs assistance in turning and repositioning. Per staff's report, patient has been refusing to be turn and patient's family is aware. Skin assessment done with the assistance of patient's nurse, ABIGAIL Benavides. Noted patient's R medial sacrum with non-blanchable redness (Stage 1 pressure injures). Patient's family at bedside made aware, skin/wound care education provided, verbalized understanding. Zelda care given, applied Z Guard cream to sacral/buttocks area and covered sacrum with Opti foam sacral dressing. Photograph of patient's sacrum are taken for reference. Repositioned patient for comfort facing her Rt side, redistributed pressure points with pillows. Patient tolerated well, her family at bedside. RECOMMENDATION: BID/PRN dressing change sacral/buttocks per MD order, Dietary consult, frequent turning and repositioning schedule as condition permits, redistribute pressure points with pillows, air mattress (ordered), keep heels offloaded on pillows , continue monitoring by wound care while patient is hospitalized. Addendum: 04/29/19 at 1542 by Jaida Boyer RN Amended: Links added.
--- NOTE | 2019-04-29 11:55 | NUR ---
pt transferred to air mattress.
[2019-04-29] MEDS ORDERED: SODIUM FERR GLUC 62.5MG/5ML 125 MG in SODIUM CHL 0.9% 100 ML IV SCH (12:00)
[2019-04-29] MEDS: VANCOMYCIN 1,250 MG in D5W 5% 250 ML IV SCH (12:30)
[2019-04-29] MEDS: IRON SUCROSE COMPLEX 200 MG in SODIUM CHL 0.9% 100 ML IV SCH (12:30)
[2019-04-29 13:00] VITALS: BP 109/87
[2019-04-29 17:31] VITALS: BP 117/64
--- NOTE | 2019-04-29 18:30 | NUR ---
pt turned to sides every 2 hours.
--- NOTE | 2019-04-29 18:30 | NUR ---
noted pt's sclera turning yellow, will notify Dr. Leonard.
[2019-04-29 22:00] VITALS: BP 105/58
[2019-04-29] MEDS ORDERED: POTASSIUM CHL 20MEQ/100ML 100 ML IV ONE (23:43)
[2019-04-30 05:00] VITALS: BP 136/61
[2019-04-30] MEDS: VANCOMYCIN 1,250 MG in D5W 5% 250 ML IV SCH ×2 (05:51→23:58)
[2019-04-30] MEDS: ACCU-CHEK COMFORT CURVE STRIP VI SCH ×3 (05:51→18:32)
[2019-04-30 09:00] VITALS: BP 114/60
[2019-04-30] MEDS: ERTAPENEM SOD INJ 1 GM in SODIUM CHL 0.9% 50 ML IV SCH (09:25)
[2019-04-30] MEDS: ENOXAPARIN SOD 40 MG/0.4 ML SYRINGE SC SCH (09:26)
[2019-04-30] MEDS: MORPHINE SULF INJ 2 MG/ML SYRINGE 1ML IV PRN ×2 (09:26→18:20)
[2019-04-30] MEDS: PANTOPRAZOLE 40 MG TAB PO SCH (09:27)
--- NOTE | 2019-04-30 09:30 | NUR ---
pt seen by Dr. Feliciano
[2019-04-30 09:46] LABS: Anion Gap 8 (5-15); Carbon Dioxide 23 mmol/L (21-32); Chloride 105 mmol/L (98-107); Potassium 3.8 mmol/L (3.5-5.1); Sodium 136 mmol/L (136-145)
[2019-04-30 09:47] LABS: BUN/Creatinine Ratio 12.7; Blood Urea Nitrogen 8 mg/dL (7-18); Calcium 8.9 mg/dL (8.5-10.1); GFR African American 120 mL/min; GFR Non-African American 99 mL/min; Glucose 136 mg/dL (74-106)
--- NOTE | 2019-04-30 10:58 | NUR ---
pt seen by Dr. Leonard pt and son Flaquito made aware of the ultrasound result and the plan for radiology consult.
[2019-04-30 11:46] LABS: INR 1.38 (0.9-1.15); Partial Thromboplastin Time 56.5 sec (23.64-32.05)
[2019-04-30] MEDS: IRON SUCROSE COMPLEX 200 MG in SODIUM CHL 0.9% 100 ML IV SCH (12:19)
[2019-04-30 13:00] VITALS: BP 123/64
[2019-04-30 17:12] VITALS: BP 105/70
--- NOTE | 2019-04-30 18:45 | NUR ---
repositioned and turned every 2 hours.
--- NOTE | 2019-04-30 19:00 | NUR ---
Opening Shift Note Assumed care of patient, is drowsy but easily aroused. No S/S of distress/SOB. Patient refused skin assessment, repositioning, and education. Instructed on POC and to call for assist PRN, will continue to monitor for changes Q1hr and PRN. Addendum: 04/30/19 at 2206 by JULITO ALONZO RN RN Fall and safety precautions in place, call light within reach.
--- NOTE | 2019-04-30 20:34 | NUR ---
Family called Daughter Sofia called for update of patient's status. After verifying password daughter was informed that patient is refusing frequent turns, skin assessment and education as to why we need to reposition her. Daughter asked "Can you just turn her" and I informed her while rounding I will continue to encourage turns, but since patient is orientatedx4 I cannot force turns. Family verbalized understanding and agreement. Will continue to encourage turning throughout shift, will continue to monitor.
[2019-04-30 22:00] VITALS: BP 103/54
--- NOTE | 2019-04-30 22:15 | NUR ---
Family Called Daughter Sofia called. Family verified the password and asked for an update. Informed family that patient continues to refuse turns, but will continue to encourage throughout the shift. Family verbalized understanding and agreement. Will continue to monitor.
--- NOTE | 2019-04-30 23:58 | NUR ---
Patient refused repositioning Rounded on patient, informed patient of benefits of repositioning. Patient refused turn, and education. Will continue to monitor.
[2019-05-01] MEDS: ACCU-CHEK COMFORT CURVE STRIP VI SCH ×4 (00:15→18:03)
--- NOTE | 2019-05-01 04:40 | NUR ---
Patient repositioning Rounded on patient, patient woke up and I recommended repositioning her. Patient refused. Will continue to monitor.
[2019-05-01 05:00] VITALS: BP 96/45
--- NOTE | 2019-05-01 05:31 | NUR ---
Family called Patient's daughter Sofia called. Family verified password. Family wanted to know if patient turned. Informed family attempts were made to turn the patient, patient refused. Patient verbalized understanding and the agreement. Will continue to monitor.
--- NOTE | 2019-05-01 06:05 | NUR ---
Patient repositioning Rounded on patient, recommended to patient to reposition to either left or right side. Patient refused turn, and education. Was able to provide passive range of motion of the lower extremities. Will continue to monitor.
--- NOTE | 2019-05-01 06:43 | NUR ---
End of shift note Patient has refused repositioning and skin assessment throughout the entirety of the shift. Educated the patient on the importance of frequent repositioning, patient refused education. Will inform day shift RN of patient's refusals.
--- NOTE | 2019-05-01 07:05 | NUR ---
Family called Family called reporting mother called them stating she has a headache and needs something for pain. Assessed patient and asked about pain level. Patient denied pain. Will inform of day shift RN to reevaluate.
--- NOTE | 2019-05-01 07:55 | NUR ---
family at bedside, pt turned to side, zguard applied to sacral area, noted blanchable redness on sacral area, optifoam in place. pt educated on the importance of turning every 2 hours, pt verbalized understanding.
--- NOTE | 2019-05-01 07:58 | NUR ---
called radiology for radiology consult, spoke to Makayla, she said pt can have light breakfast and she will call me for paracentesis/thoracentesis schedule once the radiologist arrives.
[2019-05-01 09:00] VITALS: BP 93/63
--- NOTE | 2019-05-01 10:00 | NUR ---
pt off floor for procedure, will give scheduled medication once pt is back in room.
--- NOTE | 2019-05-01 10:33 | NUR ---
PARACENTESIS REMOVED 2.4L FROM PARACENTESIS DRAIN PROCEDURE DONE BY MD RICHARDS 1008 V/S: BP 97/55 HR 101 FIO2 91% RR 25 1030 V/S: BP 104/50 HR 101 FIO2 92% RR 22 PATIENT TOLERATED PROCEDURE WELL. BAND-AID APPLIED OVER INCISION SITE.
[2019-05-01] MEDS: ERTAPENEM SOD INJ 1 GM in SODIUM CHL 0.9% 50 ML IV SCH (10:53)
[2019-05-01] MEDS: PANTOPRAZOLE 40 MG TAB PO SCH (10:53)
--- NOTE | 2019-05-01 11:55 | NUR ---
PT SEEN BY DR. GOFF AND DR. Nina JIMÉNEZ
[2019-05-01] MEDS: IRON SUCROSE COMPLEX 200 MG in SODIUM CHL 0.9% 100 ML IV SCH (12:27)
[2019-05-01] MEDS: MORPHINE SULF INJ 2 MG/ML SYRINGE 1ML IV PRN ×2 (12:28→20:17)
[2019-05-01 13:00] VITALS: BP 100/65
--- NOTE | 2019-05-01 14:00 | NUR ---
PT REFUSED TO TURN AT THIS TIME, FAMILY AT BEDSIDE. PT EDUCATED ON THE IMPORTANCE OF TURNING BUT PT STATED " DO NOT TO TURN ME FOR THE REMAINING HOURS OF HER LIFE".
--- NOTE | 2019-05-01 15:45 | NUR ---
Dr. Leonard made aware daughter Sofia is asking for stool softener for the pt, Dr. Leonard ordered colace 100mg bid, order read back, verified and carried out.
--- NOTE | 2019-05-01 16:02 | NUR ---
Spoke with Dr. Horacio Leonard ordered to fax radiology report, ultrasound, ct scan to Dr. Branch in [place] as requested by rossy Huddleston.
[2019-05-01 16:20] LABS: Basophils # (auto) 0.1 uL; Eosinophils # (auto) 0.1 uL; Eosinophils % (auto) 0.4 % (0.0-7.0); Lymphocytes # (auto) 2.8 uL; Monocytes # (auto) 0.7 uL
[2019-05-01 16:22] LABS: Basophils % (auto) 0.4 % (0.0-2.0); Hematocrit 29.6 % (36.0-46.0); Hemoglobin 9.5 g/dL (12.2-16.2); Lymphocytes % (auto) 20.7 % (10.0-50.0); Mean Corpuscular Hemoglobin 26.1 pg (28.0-32.0); Mean Corpuscular Hgb Conc. 32.1 g/dL (32.0-36.0); Mean Corpuscular Volume 81.5 fL (80.0-100.0); Monocytes % (auto) 5.1 % (0.0-12.0); Neutrophils # (auto) 9.8 uL; Neutrophils % (auto) 73.4 % (37.0-80.0); Nucleated Red Blood Cells % 0.1 %; Platelet Count (auto) 181 10^3/uL (140-450); Red Blood Cells 3.64 10^6/uL (4.0-5.20); Red Cell Distribution Width 22.4 % (11.8-14.3); White Blood Cell 13.3 10^3/uL (4.4-10.8)
[2019-05-01 16:41] LABS: Albumin 1.4 g/dL (3.4-5.0); Calcium 8.4 mg/dL (8.5-10.1); Potassium 4.1 mmol/L (3.5-5.1)
[2019-05-01 16:44] LABS: BUN/Creatinine Ratio 17.7; Bilirubin, Total 5.9 mg/dL (0.2-1.0); Lactic Acid w/Reflex 3.4 mmol/L (0.4-2.0); Total Protein 6.2 g/dL (6.4-8.2)
[2019-05-01 17:00] VITALS: BP 94/63
[2019-05-01] MEDS: DOCUSATE SOD 100 MG CAP PO PRN (18:50)
--- NOTE | 2019-05-01 19:00 | NUR ---
PT TURNED TO SIDES AND REPOSITIONED, FEET ELEVATED WITH A PILLOW.
--- NOTE | 2019-05-01 19:10 | NUR ---
Opening Shift Note Assumed care of patient, awake and alert. No S/S of distress/SOB or pain. Fall and safety precautions in place. Call light within reach. Instructed on POC and to call for assist PRN, will continue to monitor for changes Q1hr and PRN.
--- NOTE | 2019-05-01 20:06 | NUR ---
SVT Received call from MACRINA, patient had run of SVT lasting approximately 5 seconds. Entered room to get EKG and vitals. Family at bedside, informed them of patient's run of SVT. EKG done, showing "sinus tachycardia. Possible anterolateral infarct. Abnormal ECG." Vitals taken; BP 94/53, HR 111. Patient denies SOB or chest pain, resting comfortably with eyes closed. Patient was asked if she had pain, patient stated only when touched. Tele strips of SVT printed and placed in chart, EKG placed in chart. Will page hospitalist regarding this at 2200. Daughter and family member at bedside. Patient resting quietly with eyes closed, even and nonlabored breathing. Fall and safety precautions in place. Call light within reach. Will continue to monitor
--- NOTE | 2019-05-01 20:45 | NUR ---
DNR Spoke with family regarding DNR status. Informed and educated family about MD's plan of care. Daughter stated she spoke with brother and together with patient, they decided to make patient DNR. Code status form printed, will inform hospitalist regarding this.
--- NOTE | 2019-05-01 20:46 | NUR ---
Family Daughter Sofia called. Password verified. Family asking about patient's status. Patient is resting comfortably, but still refusing turns.
--- NOTE | 2019-05-01 21:59 | NUR ---
FAMILY Received call from son, requesting to come visit patient at this time. Informed patient that visiting hours are closed and will re-open tomorrow morning at 0800. Patient requesting to come in at 0600. Will inform chargeback analyst.
[2019-05-01 22:00] VITALS: BP 103/55
--- NOTE | 2019-05-01 22:00 | NUR ---
HOSPITALIST Paged hospitalist to inform her of patient's 5 second run of SVT and to inform her of family and patient's decision of DNR status. Awaiting call back.
--- NOTE | 2019-05-01 22:25 | NUR ---
HOSPITALIST Received call back from hospitalist Velia Pham NP. Informed her of patient's SVT and decision for DNR status. Velia stated to bring hard chart down to physician's office for signatures. 2235: EKG showed to Velia and signed. Code status form showed to Velia and signed. Both placed in chart.
--- NOTE | 2019-05-02 03:52 | NUR ---
Family called Daughter Sofia called asking about the patient's status. After verifying password informed family patient is sleeping peacefully.
[2019-05-02] MEDS: ACCU-CHEK COMFORT CURVE STRIP VI SCH ×4 (06:00→18:00)
[2019-05-02 08:41] LABS: Basophils # (auto) 0.1 uL; Eosinophils # (auto) 0.1 uL; Lymphocytes # (auto) 1.9 uL
[2019-05-02 08:43] LABS: Basophils % (auto) 0.6 % (0.0-2.0); Eosinophils % (auto) 0.4 % (0.0-7.0); Hematocrit 28.8 % (36.0-46.0); Hemoglobin 9.2 g/dL (12.2-16.2); Lymphocytes % (auto) 11.5 % (10.0-50.0); Mean Corpuscular Hemoglobin 26.4 pg (28.0-32.0); Mean Corpuscular Hgb Conc. 32.1 g/dL (32.0-36.0); Mean Corpuscular Volume 82.4 fL (80.0-100.0); Monocytes % (auto) 6.1 % (0.0-12.0); Neutrophils # (auto) 13.3 uL; Neutrophils % (auto) 81.4 % (37.0-80.0); Platelet Count (auto) 186 10^3/uL (140-450); White Blood Cell 16.4 10^3/uL (4.4-10.8)
[2019-05-02 08:50] LABS: Red Cell Distribution Width 22.9 % (11.8-14.3)
[2019-05-02 09:00] VITALS: BP 95/55
[2019-05-02 09:34] LABS: Albumin 1.3 g/dL (3.4-5.0); BUN/Creatinine Ratio 21.9; Calcium 8.4 mg/dL (8.5-10.1); Potassium 3.9 mmol/L (3.5-5.1)
[2019-05-02 09:37] LABS: Bilirubin, Total 6.8 mg/dL (0.2-1.0); Total Protein 6.1 g/dL (6.4-8.2)
[2019-05-02] MEDS: ERTAPENEM SOD INJ 1 GM in SODIUM CHL 0.9% 50 ML IV SCH (10:00)
[2019-05-02] MEDS: PANTOPRAZOLE 40 MG TAB PO SCH (10:00)
[2019-05-02] MEDS: IRON SUCROSE COMPLEX 200 MG in SODIUM CHL 0.9% 100 ML IV SCH (12:00)
[2019-05-02] MEDS: MORPHINE SULF INJ 2 MG/ML SYRINGE 1ML IV PRN (12:00)
--- NOTE | 2019-05-02 12:59 | NUR ---
PT PATIENT WAS PUT ON HOLD FOR PHYSICAL THERAPY FROM ABIGAIL BILLINGSLEY. Addendum: 05/02/19 at 1301 by PIOTR CARVER PTT Amended: Links added.
[2019-05-02 13:00] VITALS: BP 126/71
[2019-05-02 17:19] VITALS: BP 131/65
--- NOTE | 2019-05-02 19:45 | NUR ---
Opening Shift Note Received report from dayshift RN. Assumed care of patient. Patient is resting. No S/S of distress/SOB or pain. Son is at the bedside. Fall and safety precautions in place. Call light within reach. Instructed on POC and to call for assist PRN, will continue to monitor for changes Q1hr and PRN. Addendum: 05/02/19 at 2136 by JULITO ALONZO RN RN Attempted to turn and reposition patient, patient and family refused. Education provided as to importance of turning frequently to prevent skin breakdown. Patient and family verbalized understanding, still refusing. Will attempt again at later time. Per day shift RN report family member is allowed to stay at the bedside throughout night. Per day shift RN MD's authorized and aware. Will inform rn hemodialysis charge.
[2019-05-02 22:00] VITALS: BP 127/69
--- NOTE | 2019-05-02 22:50 | NUR ---
Turn Repositioned patient for comfort. Patient still refusing skin assessment. Educated patient and family of the importance of skin assessment. Patient free of discomfort and distress. Fall and safety precautions in place. Call light within reach. Will continue to monitor.
[2019-05-03] MEDS: ACCU-CHEK COMFORT CURVE STRIP VI SCH ×4 (00:18→18:00)
--- NOTE | 2019-05-03 01:18 | NUR ---
Turn Attempted to turn and reposition patient, patient and family refused. Education provided as to importance of turning frequently to prevent skin breakdown. Patient and family verbalized understanding, still refusing. Will attempt again at later time.
[2019-05-03 05:00] VITALS: BP 111/61
[2019-05-03] MEDS: MORPHINE SULF INJ 2 MG/ML SYRINGE 1ML IV PRN ×2 (05:57→12:07)
--- NOTE | 2019-05-03 05:57 | NUR ---
Turn Patient repositioned to left side. Patient tolerated turn. Patient resting comfortably. Son is at the bedside. Educated why we emphasize frequent turning. Patient and family verbalized understanding. Unable to assess skin on backside, due to patient refusing to be turned more than approximately 45 degrees, stating it's too painful. Will inform dayshift RN that complete skin assessment was not performed.
[2019-05-03] MEDS: ERTAPENEM SOD INJ 1 GM in SODIUM CHL 0.9% 50 ML IV SCH (08:13)
[2019-05-03] MEDS: HYDROcodone-ACET 5/325MG TAB PO PRN ×2 (08:14→18:52)
[2019-05-03] MEDS: PANTOPRAZOLE 40 MG TAB PO SCH (08:14)
[2019-05-03 09:00] VITALS: BP 122/76
[2019-05-03 09:38] LABS: Eosinophils # (auto) 0.1 uL; Hemoglobin 9.6 g/dL (12.2-16.2); White Blood Cell 20.3 10^3/uL (4.4-10.8)
[2019-05-03 09:40] LABS: Basophils # (auto) 0.2 uL; Basophils % (auto) 0.8 % (0.0-2.0); Eosinophils % (auto) 0.5 % (0.0-7.0); Lymphocytes # (auto) 1.6 uL; Lymphocytes % (auto) 8.1 % (10.0-50.0); Mean Corpuscular Hemoglobin 26.9 pg (28.0-32.0); Mean Corpuscular Volume 84.2 fL (80.0-100.0); Monocytes # (auto) 0.9 uL; Monocytes % (auto) 4.5 % (0.0-12.0); Neutrophils # (auto) 17.5 uL; Neutrophils % (auto) 86.1 % (37.0-80.0); Platelet Count (auto) 204 10^3/uL (140-450); Red Blood Cells 3.56 10^6/uL (4.0-5.20)
[2019-05-03 09:45] LABS: Red Cell Distribution Width 23.9 % (11.8-14.3)
[2019-05-03 10:26] LABS: Albumin 1.4 g/dL (3.4-5.0); BUN/Creatinine Ratio 19.2; Calcium 8.7 mg/dL (8.5-10.1)
[2019-05-03 10:33] LABS: Bilirubin, Total 6.9 mg/dL (0.2-1.0); Total Protein 6.1 g/dL (6.4-8.2)
[2019-05-03] MEDS: IRON SUCROSE COMPLEX 200 MG in SODIUM CHL 0.9% 100 ML IV SCH (12:00)
[2019-05-03 17:00] VITALS: BP 97/55
--- NOTE | 2019-05-03 19:35 | NUR ---
RECEIVED PATIENT FROM DAY SHIFT RN. PATIENT RESTING IN BED. FAMILY AT BEDSIDE. NO S/S OF DISTRESS NOTED. DENIED PAIN FOR NOW. ZACARIAS CATH IN PLACE DRAINING GRAVITY. DRESSING C/D/I. REORIENTED PATIENT SITUATION. POC INSTRUCTED AND ENCOURAGED PATIENT TO CALL FOR NURSE NAVIGATOR IF NEEDED. BED IN LOWEST POSITION WITH SIDE RAILS UP X 2. CALL BRAND WITHIN REACH. ALARM ON. CONTINUE TO MONITOR FOR CHANGES Q1H AND PRN.
--- NOTE | 2019-05-03 21:37 | NUR ---
TRIED TO TURN PATIENT. PATIENT REFUSED. EDUCATED PATIENT THE IMPORTANCE OF TURNING. PATIENT VERBALIZED UNDERSTANDING. WILL TRY IT LATER.
[2019-05-03 22:00] VITALS: BP 113/73
--- NOTE | 2019-05-03 22:36 | NUR ---
REPOSITIONED PATIENT. PATIENT TOLERATED WELL. CONTINUE TO MONITOR.
[2019-05-04] MEDS: ACCU-CHEK COMFORT CURVE STRIP VI SCH ×3 (00:32→12:00)
--- NOTE | 2019-05-04 00:32 | NUR ---
ACCU-CHECK, BS 156. CONTINUE TO MONITOR.
--- NOTE | 2019-05-04 04:09 | NUR ---
REPOSITIONED PATIENT . PATIENT TOLERATED WELL. CONTINUE CARE.
[2019-05-04 05:22] VITALS: BP 101/57
--- NOTE | 2019-05-04 06:00 | NUR ---
REPOSITIONED PATIENT . PATIENT TOLERATED WELL. CONTINUE CARE.
--- NOTE | 2019-05-04 06:08 | NUR ---
ACCU-CHECK, BS 153 CONTINUE TO MONITOR.
[2019-05-04 07:06] LABS: Basophils # (auto) 0.1 uL; Basophils % (auto) 0.6 % (0.0-2.0); Eosinophils # (auto) 0.1 uL; Eosinophils % (auto) 0.7 % (0.0-7.0); Hematocrit 28.3 % (36.0-46.0); Lymphocytes # (auto) 1.6 uL; Lymphocytes % (auto) 8.9 % (10.0-50.0); Mean Corpuscular Hemoglobin 27.1 pg (28.0-32.0); Mean Corpuscular Hgb Conc. 31.9 g/dL (32.0-36.0); Monocytes % (auto) 5.6 % (0.0-12.0); Neutrophils # (auto) 15.1 uL; Neutrophils % (auto) 84.2 % (37.0-80.0); Nucleated Red Blood Cells % 0.1 %; Platelet Count (auto) 177 10^3/uL (140-450); Red Blood Cells 3.33 10^6/uL (4.0-5.20); White Blood Cell 17.9 10^3/uL (4.4-10.8)
[2019-05-04 07:14] LABS: Red Cell Distribution Width 25.7 % (11.8-14.3)
[2019-05-04 07:19] LABS: Albumin 1.3 g/dL (3.4-5.0); Calcium 8.5 mg/dL (8.5-10.1); Potassium 3.9 mmol/L (3.5-5.1)
[2019-05-04 07:22] LABS: BUN/Creatinine Ratio 22.9
[2019-05-04 07:25] LABS: Total Protein 5.5 g/dL (6.4-8.2)
[2019-05-04 08:11] LABS: INR 1.38 (0.9-1.15); Partial Thromboplastin Time 54.1 sec (23.64-32.05)
[2019-05-04 09:00] VITALS: BP 93/49
[2019-05-04] MEDS: PANTOPRAZOLE 40 MG TAB PO SCH (10:50)
[2019-05-04] MEDS: ERTAPENEM SOD INJ 1 GM in SODIUM CHL 0.9% 50 ML IV SCH (10:50)
[2019-05-04] MEDS: HYDROcodone-ACET 5/325MG TAB PO PRN ×2 (10:51→12:19)
--- NOTE | 2019-05-04 11:11 | NUR ---
Nutrition Follow-up Notes Wt.: 73.3 kg Pt was sleeping with no family by bedside. per records pt with ca colon mets. pt is currently on CCHO 60 gm/meal diet with inadequate PO 50% x 4 per RN doc. Est. Needs BW (68 kg): 7874-9411 kcal (23-25 kcal/kgBW), 68-81 gms pro (1.0-1.2 gms/kgBW r/t severe hypoalb). Will continue to monitor pertinent labs and reassess nutrient need prn Labs: GLU 160 H, ALB 1.3 L, ALP 353 H Skin: Austen scale 13, mod risk pressure ulcer sacrum per RN doc GI: Pt had 2 BM 05/02 per molder labels. PES: Altered nutrition related lab values r/t acute/chronic medical condition aeb hyperglycemia, elev a1C, severe hypoalb. hyperbil, Will continue to monitor PO intake, skin status, pertinent labs and weight trend. F/u in 3-5 days. Rec.: 1.) consider Glucerna 1 carton bid if PO is low. 2) continue assistance with meals. 3) refer to CDE on DC. 4) consider prostat 1 packet daily. 5) continue current plan of care
[2019-05-04] MEDS: IRON SUCROSE COMPLEX 200 MG in SODIUM CHL 0.9% 100 ML IV SCH (12:52)
[2019-05-04 13:00] VITALS: BP 101/67
[2019-05-04 13:34] LABS: Urine Bacteria FEW /hpf (None Seen); Urine Blood Negative /uL (Negative); Urine Mucus FEW (None Seen); Urine Specific Gravity 1.028 (1.001-1.035); Urine WBC 1 /hpf (0 - 5)
--- NOTE | 2019-05-04 14:48 | NUR ---
PT PATIENT NOTIFIED PHYSICAL THERAPY TODAY THAT THEY WERE HAVING SURGERY TODAY, THEREFORE THEY WANTED TO SKIP PHYSICAL THERAPY. Addendum: 05/04/19 at 1449 by PIOTR CARVER PTT Amended: Links added.
--- NOTE | 2019-05-04 16:05 | NUR ---
D/C Planning Per consult for Hospice evaluation. Information and Choice letter was given to Pt and son was at bed side. Pt and son Flaquito requested [facility]. Contacted and faxed medical records Ph: ) Fax:( [phone]). Per Unique from [facility] referral was receive and evaluation will be completed today 05/04/19. Per Unique from [facility] she will have everything completed upon d/c. I will set up transportation upon d/c. . Addendum: 05/04/19 at 1655 by DEE GARZA Pt and rossy Huddleston verbalize and agrees d/c plan.
--- NOTE | 2019-05-04 17:58 | NUR ---
PATIENT REFUSED 1700 VITALS
--- NOTE | 2019-05-04 19:35 | NUR ---
OPENING NOTES RECEIVED REPORT FROM DAY SHIFT NURSE. PT IS AWAKE, ALERT, AND ORIENTATED X 4 WITH NO S/S OF DISTRESS NOR PAIN. NO SOB NOTED. FAMILY IS AT BEDSIDE. PT APPEARS JAUNDICED. ZACARIAS IS SECURED, PATENT, AND DRAINING BELOW BLADDER. TOLD PT TO CALL FOR ASSISTANCE. BED IS IN LOWEST POSITIONS WITH SIDE RAILS UP X 2. BED BRAKES ARE LOCKED AND CALL LIGHT IS WITH IN REACH. WILL MONITOR Q 1HR.
[2019-05-04 20:00] VITALS: BP 120/67
[2019-05-04 21:41] VITALS: BP 99/57
[2019-05-05] MEDS: DOCUSATE SOD 100 MG CAP PO PRN (02:12)
[2019-05-05] MEDS: ACCU-CHEK COMFORT CURVE STRIP VI SCH ×2 (05:42)
[2019-05-05 05:52] VITALS: BP 112/57
--- NOTE | 2019-05-05 07:15 | NUR ---
closing notes endorsed care to day shift nurseHelena.
[2019-05-05 09:00] VITALS: BP 122/58
[2019-05-05] MEDS: PANTOPRAZOLE 40 MG TAB PO SCH (09:56)
[2019-05-05] MEDS: ERTAPENEM SOD INJ 1 GM in SODIUM CHL 0.9% 50 ML IV SCH (10:20)
--- NOTE | 2019-05-05 11:17 | NUR ---
PT PATIENT REFUSED PHYSICAL THERAPY DUE TO PAIN. NOTIFIED ABIGAIL STEVENSON. Addendum: 05/05/19 at 1118 by PIOTR CARVER PTT Amended: Links added.
--- NOTE | 2019-05-05 12:25 | NUR ---
D/C Planning Followed up with Unique from [facility] Ph: ( [phone]) advised Pt is being d/c today. Contacted [facility] [employer] ph:) spoke with Jesús. Per Jesús from [employer] vegetable picker time will be between the hours 13:00-2:30 via [employer]. Attempted to get a hold of ABIGAIL Malik was unable to however, informed ABIGAIL Brown.
[2019-05-05 12:30] VITALS: BP 120/67
[2019-05-05] MEDS: HYDROcodone-ACET 5/325MG TAB PO PRN (12:53)
[2019-05-05 13:14] VITALS: BP 96/51
--- NOTE | 2019-05-05 15:01 | NUR ---
patient left with family for home and family hospice all belongings in tact left at 1445 all papers in order and signed. Patient medicated prior to journey home.
== END 2019-05-05 14:45 | disposition hospice, home (50) | DRG 871 ==
LOC: ER 08:59 → TELE 09:00 → TELE-WESTW 18:07
PROVIDERS: ADMIT Internal Medicine; ATTEND Family Medicine
PROC: 02HV33Z Insertion of Infusion Device into Superior Vena Cava, Percutaneous Approach (ICD-10-PCS; 2019-04-21)
PROC: 0W9G30Z Drainage of Peritoneal Cavity with Drainage Device, Percutaneous Approach (ICD-10-PCS; principal; 2019-05-01)
DX: A41.9 Sepsis, unspecified organism (principal); E43 Unspecified severe protein-calorie malnutrition; N17.0 Acute kidney failure with tubular necrosis; J18.9 Pneumonia, unspecified organism; N39.0 Urinary tract infection, site not specified; K92.2 Gastrointestinal hemorrhage, unspecified; E87.1 Hypo-osmolality and hyponatremia; C78.7 Secondary malignant neoplasm of liver and intrahepatic bile duct; J90 Pleural effusion, not elsewhere classified; R18.8 Other ascites; K52.1 Toxic gastroenteritis and colitis; E11.9 Type 2 diabetes mellitus without complications; E86.0 Dehydration; D63.8 Anemia in other chronic diseases classified elsewhere; N28.1 Cyst of kidney, acquired; B96.20 Unspecified Escherichia coli [E. coli] as the cause of diseases classified elsewhere; E87.6 Hypokalemia; I10 Essential (primary) hypertension; I25.10 Atherosclerotic heart disease of native coronary artery without angina pectoris; Z16.12 Extended spectrum beta lactamase (ESBL) resistance; Z51.5 Encounter for palliative care; Z66 Do not resuscitate; R33.9 Retention of urine, unspecified; T36.95XA Adverse effect of unspecified systemic antibiotic, initial encounter; Z85.3 Personal history of malignant neoplasm of breast; Z85.038 Personal history of other malignant neoplasm of large intestine; Z80.3 Family history of malignant neoplasm of breast; Z82.49 Family history of ischemic heart disease and other diseases of the circulatory system; Z83.3 Family history of diabetes mellitus; Z90.12 Acquired absence of left breast and nipple; Z90.710 Acquired absence of both cervix and uterus; Z92.21 Personal history of antineoplastic chemotherapy; Z88.0 Allergy status to penicillin; Z88.8 Allergy status to other drugs, medicaments and biological substances; Z88.1 Allergy status to other antibiotic agents; Z91.041 Radiographic dye allergy status; Z91.013 Allergy to seafood; Z91.14 Patient's other noncompliance with medication regimen; Y92.89 Other specified places as the place of occurrence of the external cause; Z79.899 Other long term (current) drug therapy; Z68.30 Body mass index [BMI] 30.0-30.9, adult
CPT/HCPCS: 10022; 36415; 49083; 70450; 71045; 71250; 71275; 74176; 76604; 76700; 76942; 80048; 80053; 80202; 81001; 82140; 82270; 82570; 82607; 82728; 82746; 82962; 83036; 83540; 83550; 83605; 83735; 83935; 84156; 84300; 84484; 85025; 85048; 85610; 85730; 87040; 87045; 87086; 87088; 87186; 87205; 87493; 87899; 89051; 93306; 93970; 94761; 96361; 96365; 96366; 96367; 96375; 97110; 97116; 97163; 97530; G0378; J1335; J1756; J1815; J1956; J2001; J2405; J3480; J7060; P9047